=== PATIENT | male | born 1970 | race Caucasian/White ===

== ENCOUNTER 2020-08-18 04:14 | Day surgery (SDC) | payer OTHER ==
[2020-08-13 17:39] VITALS: BMI 34.2
[2020-08-18] MEDS ORDERED: MIDAZOLAM HCL 2 MG/2 ML SINGLE DOSE VIAL ONE (10:49)
[2020-08-18 12:43] VITALS: BP 121/72; PULSE 60; TEMP 97.1
== END 2020-08-18 12:45 | disposition home or self-care (01) ==
LOC: JASU-SURG 04:14
PROVIDERS: ATTEND Urology
PROC: 0TF3XZZ Fragmentation in Right Kidney Pelvis, External Approach (ICD-10-PCS; principal; 2020-08-18 10:00)
DX: N20.0 Calculus of kidney (principal); E11.9 Type 2 diabetes mellitus without complications
CPT/HCPCS: 82962

== ENCOUNTER 2022-07-05 04:09 | Day surgery (SDC) | payer OTHER ==
[2022-06-30 09:17] VITALS: BMI 36.1
[2022-07-05 06:47] VITALS: RESP 18
[2022-07-05] MEDS ORDERED: MIDAZOLAM HCL 2 MG/2 ML SINGLE DOSE VIAL ONE (08:21)
[2022-07-05] MEDS ORDERED: PROPOFOL 20 ML ONE (08:21)
[2022-07-05] MEDS ORDERED: ONDANSETRON 4 MG/2 ML VIAL ONE (08:43)
[2022-07-05] MEDS ORDERED: KETOROLAC TROMETHAMINE 30 MG/1 ML VIAL ONE (08:43)
[2022-07-05] MEDS ORDERED: DEXAMETHASONE SOD PHOSPHATE 4 MG/1 ML VIAL ONE (08:48)
[2022-07-05] MEDS ORDERED: KETAMINE HCL 500 MG/10 ML VIAL ONE (08:51)
[2022-07-05 11:45] VITALS: BP 110/78; PULSE 62; TEMP 97.9
[2022-07-05] MEDS ORDERED: LIDOCAINE HCL/PF 2% SDV 5ML VIAL ONE (12:13)
== END 2022-07-05 11:13 | disposition home or self-care (01) ==
LOC: JASU-SURG 04:09
PROVIDERS: ATTEND Urology
PROC: 0TF3XZZ Fragmentation in Right Kidney Pelvis, External Approach (ICD-10-PCS; principal; 2022-07-05 08:30)
DX: N20.0 Calculus of kidney (principal)
CPT/HCPCS: 82962